=== PATIENT | female | born 1980 | race American Indian/Alaskan Native ===

== ENCOUNTER 2018-02-06 19:02 | Emergency (ER) | payer SELFPAY ==
[2018-02-06 19:31] VITALS: BP 124/87
[2018-02-06] MEDS ORDERED: NACL 0.9% 1000 ML 1,000 ML IV ONE ×2 (20:34→23:35)
[2018-02-06 20:51] LABS: Basophils # (Auto) 0.1 K/mm3 (0.0-0.1); Basophils % (Auto) 0.7 % (0.0-1.8); Eosinophils % (Auto) 0.2 % (0.0-4.3); Hematocrit 38.1 % (30.3-42.9); Hemoglobin 13.3 gm/dl (10.1-14.3); Lymphocytes # (Auto) 2.5 K/mm3 (1.2-5.4); Lymphocytes % (Auto) 29.1 % (13.4-35.0); Mean Corpuscular HGB Conc 35 % (30-34); Mean Corpuscular Hemoglobin 33 pg (28-32); Mean Corpuscular Volume 94 fl (79-97); Monocytes # (Auto) 0.7 K/mm3 (0.0-0.8); Monocytes % (Auto) 8.4 % (0.0-7.3); Platelet Count 375 K/mm3 (140-440); Red Blood Count 4.04 M/mm3 (3.65-5.03); Red Cell Distribution Width 12.8 % (13.2-15.2)
[2018-02-06 21:20] LABS: Alanine Aminotransferase 10 units/L (7-56); Albumin 4.2 g/dL (3.9-5); BUN/Creatinine Ratio 9; Blood Urea Nitrogen 6 mg/dL (7-17); Calcium 9.2 mg/dL (8.4-10.2); Hemolysis Index 13
[2018-02-06 21:34] LABS: Bilirubin,Urine NEG (Negative); Blood,Urine SM (Negative); Color,Urine Yellow (Yellow); Protein,Urine <15 mg/dL mg/dL (Negative); Urobilinogen,Urine < 2.0 mg/dL (<2.0)
[2018-02-06] MEDS ORDERED: ZOFRAN IV ONE (23:35)
[2018-02-06] MEDS ORDERED: TORADOL IV ONE (23:35)
--- NOTE | 2018-02-07 00:15 | Emergency Department Report ---
ED Abdominal Pain HPI - General Chief Complaint: Abdominal Pain Stated Complaint: CHEST/STOMACH PAIN Time Seen by Provider: 02/06/18 23:33 Source: patient Mode of arrival: Ambulatory Limitations: No Limitations - History of Present Illness Initial Comments: This is a 37-year-old Bur[place] female who presents with abdominal pain radiating to epigastric region 3 days pain described a 5/10 and aching burning pain is exacerbated by movement has been no nausea vomiting patient does endorse pain with bowel movements however no bleeding is no shortness of breath or low back pain MD Complaint: abdominal pain Onset/Timin -: days(s) Location: LLQ, RLQ, epigastric Radiation: LLQ, RLQ, epigastric Migration to: LLQ, RLQ Severity: moderate Severity scale (0 -10): 5 Quality: cramping, aching, sharp Consistency: constant Improves With: nothing Worsens With: movement Associated Symptoms: nausea. denies: vomiting, diarrhea, fever, chills, constipation, dysuria, hematemesis, hematochezia, melena, anorexia, syncope - Related Data LMP (females 10-50): last week Previous Rx's Medication Instructions Recorded Last Taken Type Ibuprofen [Ibu] 800 mg PO TID PRN #30 tablet 02/07/18 Unknown Rx Allergies Allergy/AdvReac Type Severity Reaction Status Date / Time No Known Allergies Allergy Unverified 02/06/18 20:34 ED Review of Systems ROS: Stated complaint: CHEST/STOMACH PAIN Other details as noted in HPI Constitutional: denies: chills, fever Eyes: denies: eye pain, eye discharge, vision change ENT: denies: ear pain, throat pain Respiratory: denies: cough, shortness of breath, wheezing Cardiovascular: denies: chest pain, palpitations Endocrine: no symptoms reported Gastrointestinal: denies: abdominal pain, nausea, diarrhea Genitourinary: denies: urgency, dysuria, discharge Musculoskeletal: denies: back pain, joint swelling, arthralgia Skin: denies: rash, lesions Neurological: denies: headache, weakness, paresthesias Psychiatric: denies: anxiety, depression Hematological/Lymphatic: denies: easy bleeding, easy bruising ED Past Medical Hx - Past Medical History Additional medical history: Bilateral Ovarian Cysts - Surgical History Additional Surgical History: Tracheostomy, Ectopic - Social History Smoking Status: Never Smoker Substance Use Type: None - Medications Home Medications: Home Medications Medication Instructions Recorded Confirmed Last Taken Type Ibuprofen [Ibu] 800 mg PO TID PRN #30 tablet 02/07/18 Unknown Rx ED Physical Exam - General Limitations: No Limitations General appearance: alert, in no apparent distress - Head Head exam: Present: atraumatic, normocephalic - Eye Eye exam: Present: normal appearance - ENT ENT exam: Present: mucous membranes moist - Neck Neck exam: Present: normal inspection, full ROM. Absent: lymphadenopathy, thyromegaly - Respiratory Respiratory exam: Present: normal lung sounds bilaterally. Absent: respiratory distress, wheezes, stridor, chest wall tenderness - Cardiovascular Cardiovascular Exam: Present: regular rate, normal rhythm, normal heart sounds. Absent: systolic murmur, diastolic murmur, rubs, gallop - GI/Abdominal GI/Abdominal exam: Present: tenderness (bial low quads ), guarding (mild gaurding to LLQ to palpation), hyperactive bowel sounds, mass (low abd midline) . Absent: rebound, rigid, bruit, pulsatile mass, hernia - Rectal Rectal exam: Present: deferred - External exam: Present: other (deferred per patient) - Extremities Exam Extremities exam: Present: normal inspection - Back Exam Back exam: Present: normal inspection - Neurological Exam Neurological exam: Present: alert, oriented X3 - Psychiatric Psychiatric exam: Present: normal affect, normal mood - Skin Skin exam: Present: warm, dry, intact, normal color. Absent: rash ED Course Vital Signs 02/06/18 02/06/18 19:15 20:24 Temperature 99.6 F 99.6 F Pulse Rate 88 91 H Respiratory 20 18 Rate Blood Pressure 124/87 124/87 O2 Sat by Pulse 99 99 Oximetry ED Medical Decision Making - Lab Data Result diagrams: 02/06/18 20:39 02/06/18 20:39 Laboratory Tests 02/06/18 02/06/18 02/06/18 20:39 20:39 20:39 WBC 8.5 RBC 4.04 Hgb 13.3 Hct 38.1 MCV 94 MCH 33 H MCHC 35 H RDW 12.8 L Plt Count 375 Lymph % (Auto) 29.1 [place] % (Auto) 8.4 H Eos % (Auto) 0.2 Baso % (Auto) 0.7 Lymph # 2.5 Campbell # 0.7 Eos # 0.0 Baso # 0.1 Seg Neutrophils % 61.6 Seg Neutrophils # 5.2 Sodium 135 L Potassium 4.3 Chloride 97.2 L Carbon Dioxide 24 Anion Gap 18 BUN 6 L Creatinine 0.7 Estimated GFR > 60 BUN/Creatinine Ratio 9 Glucose 89 Calcium 9.2 Total Bilirubin 0.70 AST 15 ALT 10 Alkaline Phosphatase 68 Troponin T Total Protein 8.3 H Albumin 4.2 Albumin/Globulin Ratio 1.0 HCG, Qual Negative Urine Color Urine Turbidity Urine pH Ur Specific [place] Urine Protein Urine Glucose (UA) Urine Ketones Urine Blood Urine Nitrite Urine Bilirubin Urine Urobilinogen Ur Leukocyte Esterase Urine WBC (Auto) Urine RBC (Auto) U Epithel Cells (Auto) 02/06/18 02/06/18 20:39 20:50 WBC RBC Hgb Hct MCV MCH MCHC RDW Plt Count Lymph % (Auto) Campbell % (Auto) Eos % (Auto) Baso % (Auto) Lymph # Campbell # Eos # Baso # Seg Neutrophils % Seg Neutrophils # Sodium Potassium Chloride Carbon Dioxide Anion Gap BUN Creatinine Estimated GFR BUN/Creatinine Ratio Glucose Calcium Total Bilirubin AST ALT Alkaline Phosphatase Troponin T < 0.010 Total Protein Albumin Albumin/Globulin Ratio HCG, Qual Urine Color Yellow Urine Turbidity Clear Urine pH 7.0 Ur Specific [place] 1.009 Urine Protein <15 mg/dl Urine Glucose (UA) Neg Urine Ketones Neg Urine Blood Sm Urine Nitrite Neg Urine Bilirubin Neg Urine Urobilinogen < 2.0 Ur Leukocyte Esterase Neg Urine WBC (Auto) 1.0 Urine RBC (Auto) 7.0 U Epithel Cells (Auto) 2.0 - Radiology Data Radiology results: report reviewed, image reviewed multiple uterine fibroids, - Medical Decision Making Patient with multiple uterine fibroids to CT scan as no acute findings pain is improved with hydration and pain medication given in ED plan DC to home when necessary Ultram patient will follow up with [facility] for further workup and evaluation of multiple intrauterine fibroids patient verbalizes agreement and understanding the discharge plan patient be DC'd home in stable condition at this time. Critical care attestation.: If time is entered above; I have spent that time in minutes in the direct care of this critically ill patient, excluding procedure time. ED Disposition Clinical Impression: Uterine fibroid Qualifiers: Uterine leiomyoma location: unspecified location Qualified Code(s): D25.9 - Leiomyoma of uterus, unspecified Disposition: DC-01 TO HOME OR SELFCARE Is pt being admited?: No Does the pt Need Aspirin: No Condition: Good Instructions: Abdominal Pain (ED), Uterine Fibroids (ED) Prescriptions: Ibuprofen [Ibu] 800 mg PO TID PRN #30 tablet PRN Reason: pain Referrals: PRIMARY CARE,MD [Primary Care Provider] - 3-5 Days Forms: Work/School Release Form(ED) Time of Disposition: 02:14
--- NOTE | 2018-02-07 01:49 | Cat Scan Report ---
FINAL REPORT PROCEDURE: CT ABDOMEN PELVIS W CON TECHNIQUE: Computerized axial tomography of the abdomen and pelvis was performed after the IV injection of iodinated nonionic contrast. HISTORY: abd pain COMPARISON: No prior studies are available for comparison. FINDINGS: Visualized lower thorax: No significant abnormality. Liver: Normal size and attenuation. Spleen: Normal size and attenuation. Gallbladder and biliary system: Normal. Pancreas: Normal. Adrenals: Normal. Kidneys: There are no kidney stones or ureteral stones. There is no hydronephrosis.. GI tract: There is no bowel obstruction, colitis or enteritis. The appendix is not identified. There is no indirect evidence of appendicitis.. Lymph nodes and mesentery: Normal. Vasculature: Normal. Bladder: Normal. Reproductive organs: Uterus is enlarged and contains multiple fibroid tumors. Maximum craniocaudal dimension of the uterus is 16 centimeters. Fibroid tumors measure up to 7 centimeters in diameter. No ovarian abnormality is identified.. Peritoneum: There is minimal pelvic fluid. There is no free air, abscess or adenopathy.. Musculoskeletal structures: No significant abnormality. Other: None. IMPRESSION: Uterus is enlarged and contains multiple fibroid tumors. Maximum craniocaudal dimension of the uterus is 16 centimeters. Fibroid tumors measure up to 7 centimeters in diameter. No ovarian abnormality is identified. There is minimal pelvic fluid. There is no free air, abscess or adenopathy. There are no kidney stones or ureteral stones. There is no hydronephrosis. There is no bowel obstruction, colitis or enteritis. The appendix is not identified. There is no indirect evidence of appendicitis..
== END 2018-02-07 02:42 | disposition home or self-care (01) ==
LOC: ED 19:02
DX: D25.9 Leiomyoma of uterus, unspecified (principal)
CPT/HCPCS: 36415; 74177; 80053; 81001; 84484; 84703; 85025; 93005; 93010; 96374; 96375; 99284; J1885; J2405; J7030; Q9967